=== PATIENT | female | born 1955 | race Caucasian/White ===

== ENCOUNTER 2018-02-19 04:32 | Emergency (ER) | payer SELFPAY ==
[~2018-02-19] VITALS: Ht 162.6 cm; Wt 59.0 kg
[2018-02-19] MEDS ORDERED: SODIUM CHLORIDE 0.9% 1,000 ML IV ONE (04:51)
[2018-02-19] MEDS ORDERED: ASPIRIN 81MG TABLET PO ONE (05:00)
[2018-02-19] MEDS ORDERED: HEPARIN 25,000 UNITS PREMIX 500 ML IV PRN (05:00)
[2018-02-19] MEDS ORDERED: HEPARIN 5000 UNITS/ML VIAL IV SCH (05:00)
[2018-02-19] MEDS ORDERED: HEPARIN 5000 UNITS/ML VIAL IV PRN ×2 (05:00)
[2018-02-19 05:12] VITALS: BP 133/68
[2018-02-19] MEDS ORDERED: MORPHINE SULFATE 4 MG/ML CPJ (NOT FOR IM USE) IV ONE (05:15)
[2018-02-19 05:49] LABS: HEMATOCRIT. 38.5 % (36.0-48.0); HEMOGLOBIN. 12.7 g/dL (12.0-16.0); MEAN CORPUSCULAR HEMOGLOBIN 30.7 pg (28.0-32.0); MEAN CORPUSCULAR VOLUME 92.9 fL (81.0-99.0); MEAN PLATELET VOLUME 8.1 fl (7.4-10.4); PLATELET 378 x1000/uL (130-400); RED BLOOD CELL COUNT 4.14 mill/uL (4.2-5.4); RED CELL DISTRIBUTION WIDTH 13.9 % (11.6-14.6)
[2018-02-19 05:50] LABS: CHLORIDE 106 mEq/L (98-107)
[2018-02-19 06:04] LABS: PROTHROMBIN TIME 10.4 sec (9.4-11.6)
[2018-02-19 06:41] LABS: PLATELET ESTIMATE NORMAL
== END 2018-02-19 05:20 | disposition short-term general hospital (02) ==
LOC: ER 04:32
DX: I21.3 ST elevation (STEMI) myocardial infarction of unspecified site (principal); E11.9 Type 2 diabetes mellitus without complications; I10 Essential (primary) hypertension
CPT/HCPCS: 36415; 71045; 80053; 83880; 84484; 85025; 85610; 85730; 93005; 96374; 96375; 99291; J1644; J2270; J7030